=== PATIENT | female | born 1945 | race Caucasian/White ===

== ENCOUNTER 2023-07-20 04:27 | Day surgery (SDC) | payer MEDICARE, SELFPAY ==
[2023-07-04 14:01] VITALS: BMI 25.4
--- NOTE | 2023-07-18 09:35 | SUR.PREOP ---
Patient called regarding upcoming procedure. Reviewed preop instructions, appointment times, and procedure prep.
[2023-07-20 11:28] VITALS: BP 152/77; PULSE 66; RESP 18; TEMP 36.2; O2SAT 100
[2023-07-20] MEDS: LACTATED RINGERS 1,000 ML 150 ML IV CONT (11:36)
--- NOTE | 2023-07-20 11:57 | WPDANESEPPF ---
Anes - Initial Pre Proc Eval Procedure: Operation Date: 07/20/23 12:30 Proposed Procedures p Esophagogastroduodenoscopy - Santiago Ruano MD Date/Time: 07/20/23 11:57 Surgeon: Santiago Ruano MD Pre Op Diagnosis: dysphagia Patient Data Age: 78 Gender: F Height: 1.6 m Weight: 64.9 kg Last Vital Signs Temp 36.2 C L 07/20/23 11:28 Pulse 66 07/20/23 11:28 Resp 18 07/20/23 11:28 BP 152/77 H 07/20/23 11:28 Pulse Ox 100 07/20/23 11:28 O2 Del Method Room Air 07/20/23 11:28 Allergies Allergy/AdvReac Type Severity Reaction Status Date / Time Penicillins Allergy hives Verified 07/20/23 11:27 codeine AdvReac Severe Gastrointestinal Verified 07/20/23 11:27 Upset bee stings AdvReac Severe Swelling Uncoded 07/20/23 11:27 Home Medications Medication Instructions Recorded Confirmed Type cyanocobalamin (vitamin B-12) 1,000 mcg IM MONTHLY 04/21/22 07/04/23 History 1,000 mcg/mL injection solution aspirin 81 mg tablet,delayed 81 mg PO DAILY 04/26/22 07/04/23 History release (Adult Aspirin Regimen) pantoprazole 40 mg tablet,delayed 40 mg PO QAM #90 tabs 08/10/22 07/04/23 Rx release olmesartan 5 mg tablet See Rx Instructions PO DAILY #90 08/11/22 07/04/23 Rx tabs rosuvastatin 10 mg tablet 10 mg PO DAILY #90 tabs 02/09/23 07/04/23 Rx albuterol sulfate 90 mcg/actuation 2 inh inhalation Q4H PRN shortness 06/17/23 07/04/23 Rx aerosol inhaler of breath or wheezing #8.5 grams alprazolam 0.25 mg tablet 0.25 mg PO BID PRN anxiety #180 06/30/23 07/04/23 Rx tabs Patient hx anesthesia problems: none Family hx anesthesia problems: none Results Review: All pre-operative results and documents have been reviewed as part of the pre-operative evaluation. [facility] Past Medical History Medical History Bilateral otitis externa History of basal cell carcinoma (BCC) History of supraventricular tachycardia Intermittent palpitations Preoperative clearance Surgical History Surgical History History of back surgery History of carpal tunnel release History of hysterectomy Family History Family History Father Hypertension Heart disease Mother Hypertension Heart disease Social History Social History Smoking status: Never smoker Alcohol intake: current Drinks per week: 14 Alcohol use details: wine Substance use: never Substance use type: does not use Lack of Transportation: No Lack of Food: Never True Current Housing: I Have Housing Concerned About Future Housing: No Difficulty Paying Gas/Electric Bills: No Difficulty Paying for Meds: No Currently Unemployed: No Difficulty w/ Childcare or Family Care: No Living arrangements: with family Occupation/Education: retired Gender identity (if verbalized by the patient): Female Sexual Orientation (if Verbalized by the Patient): Straight or Heterosexual Spiritual care concerns: No Anes - Eval Final PreProcedure Day of Procedure 07/20/23 11:57 Patient weight: normal Heart: regular rate and rhythm Lungs: decreased breath sounds Airway: Mallampati scale class II Neurological: other (alert) Last oral intake: >/= 8 hours ASA classification: III Emergent: no Anesthetic plan: proceed Anesthesia type and monitoring: general GIVS and standard monitoring Results Review: All pre-operative results and documents have been reviewed as part of the pre-operative evaluation. Informed Consent: The patient's anesthetic plan and its attendant risks and benefits were discussed with the patient/family/POA. Questions were solicited and answers provided to the satisfaction of the patient/family/POA.
--- NOTE | 2023-07-20 12:33 | PM.HPGS ---
History of Present Illness History of Present Illness Consent: Risks, benefits, and alternatives have been discussed and questions answered. Patient agrees to proceed with procedure. Chief complaint: dysphagia Narrative: Bita Gatica is a 78 year old female with dysphagia, sensation that food will get stuck at left side of throat, had EGD with dilation earlier this year at [facility] , using pantoprazole Review of Systems Constitutional: Constitutional: Denies headache(s) and Denies weakness Eyes: Eyes: Denies blurry vision ENT: Reports Normal hearing present, Denies headache(s) and Denies neck pain Cardiovascular: Cardiovascular: Denies chest pain and Denies dyspnea Respiratory: Respiratory: Denies dyspnea Gastrointestinal: Gastrointestinal: Reports no additional gastrointestinal complaints Genitourinary: Genitourinary: Denies dysuria Musculoskeletal: Musculoskeletal: Denies neck pain Integumentary/Breasts: Skin/Breast: Denies dry skin Neurologic: Reports Normal hearing present, Denies headache(s) and Denies weakness Psychiatric: Psychiatric: Denies anxiety Endocrine: Endocrine: Denies change in body appearance Hematologic/Lymphatic: Hematologic/Lymphatic: Denies easy bleeding Allergic/Immunologic: Allergic/Immunologic: Denies urticaria PMFSH Past Medical History Medical History (Updated 07/20/23 @ 12:35 by Santiago Ruano MD) Bilateral otitis externa Dysphagia History of basal cell carcinoma (BCC) History of supraventricular tachycardia Intermittent palpitations Preoperative clearance Surgical History Surgical History History of back surgery History of carpal tunnel release History of hysterectomy Family History Family History Father Hypertension Heart disease Mother Hypertension Heart disease Social History Social History Smoking status: Never smoker Alcohol intake: current Drinks per week: 14 Alcohol use details: wine Substance use: never Substance use type: does not use Lack of Transportation: No Lack of Food: Never True Current Housing: I Have Housing Concerned About Future Housing: No Difficulty Paying Gas/Electric Bills: No Difficulty Paying for Meds: No Currently Unemployed: No Difficulty w/ Childcare or Family Care: No Living arrangements: with family Occupation/Education: retired Gender identity (if verbalized by the patient): Female Sexual Orientation (if Verbalized by the Patient): Straight or Heterosexual Spiritual care concerns: No Meds Home Medications and Allergies Home Medications Medication Instructions Recorded Confirmed Type cyanocobalamin (vitamin B-12) 1,000 mcg IM MONTHLY 04/21/22 07/04/23 History 1,000 mcg/mL injection solution aspirin 81 mg tablet,delayed 81 mg PO DAILY 04/26/22 07/04/23 History release (Adult Aspirin Regimen) pantoprazole 40 mg tablet,delayed 40 mg PO QAM #90 tabs 08/10/22 07/04/23 Rx release olmesartan 5 mg tablet See Rx Instructions PO DAILY #90 08/11/22 07/04/23 Rx tabs rosuvastatin 10 mg tablet 10 mg PO DAILY #90 tabs 02/09/23 07/04/23 Rx albuterol sulfate 90 mcg/actuation 2 inh inhalation Q4H PRN shortness 06/17/23 07/04/23 Rx aerosol inhaler of breath or wheezing #8.5 grams alprazolam 0.25 mg tablet 0.25 mg PO BID PRN anxiety #180 06/30/23 07/04/23 Rx tabs Allergies Allergy/AdvReac Type Severity Reaction Status Date / Time Penicillins Allergy hives Verified 07/20/23 11:27 codeine AdvReac Severe Gastrointestinal Verified 07/20/23 11:27 Upset bee stings AdvReac Severe Swelling Uncoded 07/20/23 11:27 Vital Signs Vital Signs - 24 hr 07/20/23 11:28 Temperature 97.1 F L Pulse Rate 66 Respiratory Rate 18 Blood Pressure 152/77 H Pulse Oximetry 100 Oxygen Delivery Room
[2023-07-20 12:51] VITALS: BP 141/73; PULSE 80; RESP 18; O2SAT 99
[2023-07-20 13:01] VITALS: BP 130/70; PULSE 68; RESP 18; O2SAT 99
[2023-07-20 13:11] VITALS: BP 136/74; PULSE 72; RESP 18; O2SAT 99
== END 2023-07-20 13:16 | disposition home or self-care (01) ==
PROVIDERS: PCP Family Medicine; Visit Provider Internal Medicine Gastroenterology
PROC: 0DJ08ZZ Inspection of Upper Intestinal Tract, Via Natural or Artificial Opening Endoscopic (ICD-10-PCS; CPT 43235; principal; 2023-07-20 12:30)
DX: K22.2 Esophageal obstruction (principal); K44.9 Diaphragmatic hernia without obstruction or gangrene; K21.00 Gastro-esophageal reflux disease with esophagitis, without bleeding; K29.50 Unspecified chronic gastritis without bleeding; Z79.82 Long term (current) use of aspirin; Z79.51 Long term (current) use of inhaled steroids
CPT/HCPCS: 43249; 88305; C1726; J2704; J7120

== ENCOUNTER 2023-11-24 08:08 | Outpatient (CLI) | payer MEDICARE, SELFPAY ==
--- NOTE | ~2023-11-24 | XR_ITS ---
EXAMINATION: XR barium swallow DATE: 11/24/2023 08:56 INDICATION: Dysphagia with weight loss. Food getting caught at the left side of the throat. TECHNIQUE: The patient drank thick barium, gas-producing crystals, and thin barium. Fluoroscopic spot radiographs of the hypopharynx and esophagus were obtained. Fluoroscopy exposure time was 2.0 minut es. A total of 1560 fluoroscopic images were recorded. Total DAP was 5.52 Gycm^2. COMPARISON: None. FINDINGS: The pharynx is symmetric and without evidence of mass lesion or mucosal irregularity. The e sophagus is normal without mass or stricture. Esophageal motility is normal. There is a small sliding -type hiatal hernia. A single episode of gastroesophageal reflux a very large amount of contrast whic h extended into the mid to upper thoracic esophagus was observed the patient's transition from prone to supine position. No further reflux was able to be elicited with additional provocative maneuvers. IMPRESSION: 1. Small sliding-type hiatal hernia with gastroesophageal reflux. Reviewed, dictated and finalized at location A.
== END 2023-11-24 08:09 | disposition home or self-care (01) ==
PROVIDERS: PCP Family Medicine; Visit Provider Otolaryngology
DX: K22.2 Esophageal obstruction (principal); R13.10 Dysphagia, unspecified; K22.4 Dyskinesia of esophagus; K44.9 Diaphragmatic hernia without obstruction or gangrene
CPT/HCPCS: 74220

== ENCOUNTER 2024-01-19 08:51 | Outpatient (CLI) | payer MEDICARE, SELFPAY ==
--- NOTE | ~2024-01-19 | NM_ITS ---
EXAMINATION: NM monique stress w perfusion DATE: 01/19/2024 10:39 INDICATION: Other forms of dyspnea. TECHNIQUE: Rest images were obtained following intravenous administration of 9.6 mCi Tc99m tetrofosmi n (Myoview). The patient was infused intravenously with Lexiscan (regadenoson). Then, 31.4 mCi Tc99m tetrofosmin (Myoview) was administered intravenously, and stress images were obtained. Data was recon structed into short axis and horizontal and vertical long axis SPECT images. Gated SPECT images were also obtained. COMPARISON: None. FINDINGS: There is no definite reversible or fixed perfusion abnormality to suggest ischemia or infar ction. There is no segmental wall motion abnormality. Left ventricular ejection fraction measures > 70%. IMPRESSION: 1. No definite ischemia or infarct. 2. Normal left ventricular ejection fraction measuring >70%. Reviewed, dictated and finalized at location A.
--- NOTE | 2024-01-19 09:08 | EST_ITS ---
Patient Info Name: Bita Gatica Age: 78 years : 1945 Gender: Female Ht: 63 in Wt: 140 lbs BSA: 1.69 m2 HR: 64 bpm BP: 146 / 79 mmHg Heart Rhythm: Sinus Rhythm Exam Date: 01/19/2024 9:47 AM Exam Location: Echo Lab Patient Status: Outpatient Admit Date: 01/19/2024 Staff Ordering Physician: Oc Lubin DO Attending Provider: Oc Lubin DO Exercise Technologist: Paradise Vasquez CT Exercise Physician: Oc Lubin DO Exam Type: CA stress monique w NM Study Info Indications R06.09 - Other forms of dyspnea A regadenoson stress test was performed. Summary 1. 1. Negative lexiscan stress test for ischemic ST changes by ECG criteria. 2. 2. Baseline hypertension. 3. 3. Nuclear scan to follow and will be reported separately. Please correlate with it. 4. 4. Patient informed of the above results. Protocol: Lexiscan Stress ECG Details Stage: REST Duration (min): 1 min : 3 sec HR (bpm): 65 SBP (mmHg): 146 DBP (mmHg): 79 Stage: REST Duration (min): 11 min : 40 sec HR (bpm): 64 SBP (mmHg): 146 DBP (mmHg): 79 Stage: STAGE 1 Duration (min): 0 min : 59 sec HR (bpm): 114 SBP (mmHg): 156 DBP (mmHg): 88 Stage: RECOVERY Duration (min): 1 min : 0 sec HR (bpm): 109 SBP (mmHg): 156 DBP (mmHg): 88 Stage: RECOVERY Duration (min): 2 min : 0 sec HR (bpm): 86 SBP (mmHg): 156 DBP (mmHg): 88 Stage: RECOVERY Duration (min): 3 min : 0 sec HR (bpm): 78 SBP (mmHg): 148 DBP (mmHg): 73 Stage: RECOVERY Duration (min): 3 min : 7 sec HR (bpm): 81 SBP (mmHg): 148 DBP (mmHg): 73 Rest HR: 64 bpm Peak HR: 116 bpm Rest Sys BP: 146 mmHg Peak Sys BP: 156 mmHg Max Pred HR: 144 bpm % Max Pred HR: 81 % Target HR: 122 bpm Max RPP: 18,096 bpm*mmHg Termination Reason: Completed protocol Cardiac Symptoms: Shortness of breath Total Time: 1 min : 0 sec Rest Butterfield BP: 79 mmHg Peak Butterfield BP: 88 mmHg Total Dose: 0.4 mg Resting ECG Sinus rhythm. Stress ECG No ST changes. Arrhythmias None. Report Signatures
== END 2024-01-19 08:52 | disposition home or self-care (01) ==
PROVIDERS: PCP Nurse Practitioner Family; Visit Provider Internal Medicine Cardiovascular Disease
DX: R06.09 Other forms of dyspnea (principal)
CPT/HCPCS: 78452; 93017; A9502; J2785

== ENCOUNTER 2024-10-18 10:41 | Outpatient (CLI) | payer MEDICARE, SELFPAY ==
--- OUTSIDE RECORDS SUMMARY | 2024-10-18 11:29 | XMS_ITS | Encounter Summary ---
Author Organization [facility] Address 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
--- OUTSIDE RECORDS SUMMARY | 2024-10-18 11:29 | XMS_ITS | Encounter Summary ---
Author Organization [email or web address] Address [address] [place] [address] Care Team Providers Care Mechanical Designer Name Role Phone Eduardo Linton MD Primary Care Provider [phone] Encounter Details Date Type Department Care Team (Late st Contact Info) Description 10/06/2000 Outpatient Historical [facility] Ganesh Brower MD Social History Tobacco Use Types Packs/Day Years Used Date Smoking Tobacco: Never Assessed Comments Unknown Sex and Gender Information Value Date Recorded Sex Assigned at Not on file Legal Sex Female 4:23 AM WEIGHT RECORDER Gender Identity Not on file Sexual Orientation Not on file documented as of this encounter Plan of Treatment Not on file documented as of this encounter Visit Diagnoses Not on filedocumented in this encounter Care Teams Mechanical Designer Relationship Specialty Start Date End Date Eduardo Linton MD PCP - General Internal Medicine 04/12/11 12/17/18 documented as of this encounter
--- OUTSIDE RECORDS SUMMARY | 2024-10-18 11:29 | XMS_ITS | Encounter Summary ---
Author Organization [facility] Address [address] [place] [address] Care Team Providers Care Panel Raiser Operator Name Role Phone Eduardo Linton MD Primary Care Provider [phone] Encounter Details Date Type Department Care Team (Late st Contact Info) Description 02/04/1999 Outpatient Historical [facility] Ganesh Brower MD Social History Tobacco Use Types Packs/Day Years Used Date Smoking Tobacco: Never Assessed Comments Unknown Sex and Gender Information Value Date Recorded Sex Assigned at Not on file Legal Sex Female 4:23 AM COOKER CASING Gender Identity Not on file Sexual Orientation Not on file documented as of this encounter Plan of Treatment Not on file documented as of this encounter Visit Diagnoses Not on filedocumented in this encounter Care Teams Panel Raiser Operator Relationship Specialty Start Date End Date Eduardo Linton MD PCP - General Internal Medicine 04/12/11 12/17/18 documented as of this encounter
--- OUTSIDE RECORDS SUMMARY | 2024-10-18 11:29 | XMS_ITS | Encounter Summary ---
Author Organization [facility] Address 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
--- OUTSIDE RECORDS SUMMARY | 2024-10-18 11:29 | XMS_ITS | Encounter Summary ---
Author Organization [facility] Address 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
--- OUTSIDE RECORDS SUMMARY | 2024-10-18 11:29 | XMS_ITS | Encounter Summary ---
Author Organization [facility] Address 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
--- OUTSIDE RECORDS SUMMARY | 2024-10-18 11:29 | XMS_ITS | Encounter Summary ---
Author Organization [facility] Address [address] [place] [address] Care Team Providers Care News Writer Name Role Phone Eduardo Linton MD Primary Care Provider [phone] Encounter Details Date Type Department Care Team (Late st Contact Info) Description 02/04/1999 Outpatient Historical [facility] Ganesh Brower MD Social History Tobacco Use Types Packs/Day Years Used Date Smoking Tobacco: Never Assessed Comments Unknown Sex and Gender Information Value Date Recorded Sex Assigned at Not on file Legal Sex Female 4:23 AM PYTHON ARCHITECT Gender Identity Not on file Sexual Orientation Not on file documented as of this encounter Plan of Treatment Not on file documented as of this encounter Visit Diagnoses Not on filedocumented in this encounter Care Teams News Writer Relationship Specialty Start Date End Date Eduardo Linton MD PCP - General Internal Medicine 04/12/11 12/17/18 documented as of this encounter
--- OUTSIDE RECORDS SUMMARY | 2024-10-18 11:29 | XMS_ITS | Encounter Summary ---
Author Organization [facility] Address [address] [place] [address] Care Team Providers Care Graphite Disk Assembler Name Role Phone Eduardo Linton MD Primary Care Provider [phone] Encounter Details Date Type Department Care Team (Late st Contact Info) Description 02/04/1999 Outpatient Historical [facility] Ganesh Brower MD Social History Tobacco Use Types Packs/Day Years Used Date Smoking Tobacco: Never Assessed Comments Unknown Sex and Gender Information Value Date Recorded Sex Assigned at Not on file Legal Sex Female 4:23 AM MATERNAL CHILD NURSE Gender Identity Not on file Sexual Orientation Not on file documented as of this encounter Plan of Treatment Not on file documented as of this encounter Visit Diagnoses Not on filedocumented in this encounter Care Teams Graphite Disk Assembler Relationship Specialty Start Date End Date Eduardo Linton MD PCP - General Internal Medicine 04/12/11 12/17/18 documented as of this encounter
--- OUTSIDE RECORDS SUMMARY | 2024-10-18 11:29 | XMS_ITS | Encounter Summary ---
Author Organization [facility] Address [address] [place] [address] Care Team Providers Care Network Management Specialist Name Role Phone Eduardo Linton MD Primary Care Provider Encounter Details Date Type Department Care Team (Late st Contact Info) Description 10/04/2000 Outpatient Historical [facility] MD Nakia HUYNH Maged, MD Social History Tobacco Use Types Packs/Day Years Used Date Smoking Tobacco: Never Assessed Comments Unknown Sex and Gender Information Value Date Recorded Sex Assigned at Not on file Legal Sex Female 4:23 AM DESK INTERVIEWER Gender Identity Not on file Sexual Orientation Not on file documented as of this encounter Plan of Treatment Not on file documented as of this encounter Visit Diagnoses Not on filedocumented in this encounter Care Teams Network Management Specialist Relationship Specialty Start Date End Date Eduardo Linton MD PCP - General Internal Medicine 04/12/11 12/17/18 documented as of this encounter
--- OUTSIDE RECORDS SUMMARY | 2024-10-18 11:29 | XMS_ITS | Encounter Summary ---
Author Organization [facility] Address [address] [place] [address] Care Team Providers Care Plastic And Reconstructive Surgeon Name Role Phone Eduardo Linton MD Primary Care Provider Encounter Details Date Type Department Care Team (Late st Contact Info) Description 09/26/2000 Outpatient Historical [facility] MD Nakia HUYNH Maged, MD Social History Tobacco Use Types Packs/Day Years Used Date Smoking Tobacco: Never Assessed Comments Unknown Sex and Gender Information Value Date Recorded Sex Assigned at Not on file Legal Sex Female 4:23 AM TRANSITION TEACHER Gender Identity Not on file Sexual Orientation Not on file documented as of this encounter Plan of Treatment Not on file documented as of this encounter Visit Diagnoses Not on filedocumented in this encounter Care Teams Plastic And Reconstructive Surgeon Relationship Specialty Start Date End Date Eduardo Linton MD PCP - General Internal Medicine 04/12/11 12/17/18 documented as of this encounter
--- OUTSIDE RECORDS SUMMARY | 2024-10-18 11:29 | XMS_ITS | Clinical Summary ---
Author Organization [facility] Address [address] [place] [address] Phone Care Team Providers Care Doctor Of Podiatric Medicine Name Role Phone Unavailable Primary Care Provider Unavailabl e Allergies Active Allergy Reactions Criticality Noted Date Comments Codeine Unknown Penicillins Hives High Quinapril Itching Low 11/25/2016 Simvastatin Other (See Comments) 11/25/2016 Hair loss, head tingling Medications cholecalciferol , Vitamin D3, (VITAMIN D3) 1,000 unit Capsule Take by mouth daily. Active CALCIUM ORAL Take by mouth. Active aspirin (ECOTRIN EC) 81 mg Tablet, Delayed Release (E.C.) Take 81 mg by mouth daily. Active DOCUSATE CALCIUM (STOOL SOFTENER ORAL) Take by mouth daily . Active rosuvastatin (CRESTOR) 10 mg tablet Take 1 Tablet (10 mg) by mouth daily at bedtime. 90 Tablet 3 05/27/2017 Active ALPRAZolam (XANAX) 0.25 mg tablet Take 1 Tablet (0.25 mg) by mouth 2 times daily as needed for Anxiety. 60 Tablet 4 05/27/2017 Active pantoprazole (PROTONIX) 40 mg Tablet, Delayed Release (E.C.) Take 1 Tablet (40 mg) by mouth daily. 90 Tablet 3 05/27/2017 Active olmesartan (BENICAR) 20 mg tablet Take 0.5 Tablets (10 mg) by mouth daily. 45 Tablet 3 05/27/2017 Active Active Problems Problem Noted Date Diagnosed Date HTN (hypertension), benign 11/25/2016 Gastroesophageal reflux disease without esophagi tis 11/25/2016 Hyperlipidemia 11/25/2016 Hx of supraventricular tachycardia History of sick sinus syndrome Resolved Problems Problem Noted Date Diagnosed Date Resolved Date First degree AV block 2016 Immunizations Immunization Administration Dates Next Due (PREVNAR 13)(6 WKS UP) PNEUM OCOCCAL CONJUGATE (PCV13) 0.5 ML, IM 05/07/2015 Influenza Seasonal Unspecified Formulation IM ,04/01/2016 Pneumococcal Polysaccharide Vacc 23-edward IM SCHIP 04/19/2012 Zoster Vaccine Live SQ 04/19/2010 Social History Tobacco Use Types Packs/Day Years Used Date Smoking Tobacco: Never Alcohol Use Standard Drinks/Week Comments Yes 0 (1 standard drink = 0.6 oz pur e alcohol) daily Comments No Sex and Gender Information Value Date Recorded Sex Assigned at Not on file Legal Sex Female 4:23 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 Gender Identity Not on file Sexual Orientation Not on file Last Filed Vital Signs Vital Sign Reading Time Taken Comments Blood Pressure 138/82 05/27/2017 10:12 AM CDT Pulse 68 05/27/2017 10:12 AM CDT Temperature 36.5 C (97.7 F) 05/27/2017 10:12 AM CDT Respiratory Rate 16 05/27/2017 10:12 AM CDT Oxygen Saturation 98% 05/27/2017 10:12 AM CDT Inhaled Oxygen Concentration - - Weight 60.3 kg (133 lb) 05/27/2017 10:12 AM CDT Height 160 cm (5' 3 ) 05/27/2017 10:12 AM CDT Body Mass Index 23.56 05/27/2017 10:12 AM CDT Plan of Treatment Health Maintenance Due Date Last Done Comments DTAP/TDAP/TD VACCINES (1 - Tdap) 1966 ZOSTER VACCINE (2 of 3) 06/14/2010 04/19/2010 RSV VACCINE (60+ or ) (1 - 1-dose 75+ series) 2022 INFLUENZA VACCINE (#1) 2024 03/31/2017, 2015 COLORECTAL SCREENING Discontinued 11/21/2014 Colorectal Cancer Screening Discontinued PNEUMOCOCCAL VACCINE 50+ YEARS Completed 05/07/2015 , 04/19/2012 OSTEOPOROSIS SCREENING Completed 05/24/2018, 2014 FIT-DNA Q 3 years Discontinued FIT/FOBT Q 1 year Discontinued Flex Sig/CT Colonography Q 5 years Discontinued Insurance MEDICARE PART A AND B AETNA MEDICARE SUPP AESSI Advance Directives For more information, please contact: [phone] Documents on File Type Date Recorded Patient Refiner Operator Expl anation Advance Directive Living Will 05/27/2017 9:32 AM Advance Directive Living Will Advance Directive POA 05/27/2017 9:31 AM Advance Directive POA
--- OUTSIDE RECORDS SUMMARY | 2024-10-18 11:29 | XMS_ITS | Encounter Summary ---
Author Organization [facility] Address 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
--- OUTSIDE RECORDS SUMMARY | 2024-10-18 11:29 | XMS_ITS | Encounter Summary ---
Author Organization [facility] Address 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
--- OUTSIDE RECORDS SUMMARY | 2024-10-18 11:30 | XMS_ITS | Referral Summary ---
Author Organization [facility] Address [address] [place] [address] Care Team Providers Care Welder Fitter Arc Name Role Phone Wally Means MD Unavailable [phone] Isela Rubio OD Unavailable [phone] Andrés Smith MD Unavailable Sidra Beltran Unavailable Koffi Connell MD Primary Care Provider [phone] Allergies Active Allergy Reactions Criticality Noted Date Comments Codeine Nausea & Vomiting Low Reaction: NAUSEA Penicillins Hives High Reaction: HIVES Quinapril Itching Low 11/25/2016 Simvastatin Other (See comments) Low Reaction: Hair loss, Venom-Honey Bee Swelling Medium 10/02/2020 Medications docusate sodium (STOOL SOFTENER) 100 mg capsule Take according to [id number] package directions 0 0 9 Active ALPRAZolam (XANAX) 0.25 mg tablet Take one by mouth three times per day as needed 30 0 9 Active Additional Information Patient not taking.Reported on 07/06/2023 cyanocobalamin (Vitamin B-12) 1,000 mcg tablet Take 1 tablet (1,000 mcg total) by mouth daily Active EPINEPHrine 0.3 mg/0.3 mL auto-injection syringe Inject 0.3 mL (0.3 mg total) into the muscle as instructed as needed [address] (PROTONIX) 40 mg EC tablet Take 1 tablet (40 mg total) by mouth daily 7 Active rosuvastatin (CRESTOR) 10 mg tablet Take 1 tablet (10 mg total) by mouth daily 7 Active olmesartan (BENICAR) 5 mg tablet TAKE 1/2 TO 1 TABLET BY MOUTH DAILY 2 Active escitalopram (LEXAPRO) 10 mg tablet Take 1 tablet (10 mg total) by mouth nightly 90 tablet 3 3 Active albuterol HFA (PROVENTIL HFA,VENTOLIN HFA,PROAIR HFA) 90 mcg/actuation inhaler INHALE 2 PUFFS BY MOUTH EVERY 4 HOURS NEEDED FOR SHORTNESS OF BREATH OR WHEEZING 4 Active Active Problems Problem Noted Date Diagnosed Date Pseudophakia of left eye 10/12/2023 Assessment & Plan (10/12/2023 4:47 PM CDT): Posterior chamber intraocular lens (PCIOL) in good position, clear. Monitor Hx of LASIK 10/12/2023 Assessment & Plan (10/12/2023 4:48 PM CDT): Stable, no complications. Monitor Aphasia 07/05/2022 Mild cognitive impairment 03/22/2022 Ataxia 03/22/2022 Anxiety 03/22/2022 Cerebrovascular disease 03/22/2022 Epiretinal membrane (ERM) of left eye 02/25/2022 Assessment & Plan (01/17/2024 9:37 PM CDT): Not yet visually significant. Discussed pars plana vitrectomy (PPV)/membrane peel (MP) PRN progression. 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 No diplopia with new Bangerter in clinic. Educated to call/RTC should be unable to place if filter falls off. Educated on how to place back on if needed. 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 Subjective improvement with Bangerter filter over left eye in clinic, no specs to place on lens today. Will update specs and return for Bangerter filter placement over left eye. Referred to retina for eval, for now pt would prefer to hold off and monitor Nuclear sclerosis of right eye 02/25/2022 Assessment & Plan (10/12/2023 4:47 PM CDT): Mild changes noted and discussed, not visually significant. Monitor SVT (supraventricular tachycardia) 12/26/2020 Overview (12/26/2020): Added automatically from request for surgery [id number] Hyperlipidemia 12/15/2013 Overview (11/04/2016): HYPERLIPIDEMIA NEC/NOS Hypertension 12/15/2013 Overview (11/05/2016): HYPERTENSION NOS Immunizations Immunization Administration Dates Next Due Td, adsorbed 08/02/2007 Social History Tobacco Use Types Packs/Day Years Used Date Smoking Tobacco: Never Tobacco Cessation:Counseling Given: Not Answered Alcohol Use Standard Drinks/Week Comments Yes 0 (1 standard drink = 0.6 oz pur e alcohol) AUDIT-C Answer Date Recorded Q1: How often do you have a drink containing alcohol? 4 or more times a week 06/10/2022 Q2: How many drinks containi ng alcohol do you have on a typical day when you are drinking? 1 or 2 Q3: How often do you have si x or more drinks on one occasion? Never 06/10/2022 Comments Unknown Sex and Gender Information Value Date Recorded Sex Assigned at Not on file Legal Sex Female 5:47 PM BRANCH MANAGER Gender Identity Not on file Sexual Orientation Not on file Last Filed Vital Signs Vital Sign Reading Time Taken Comments Blood Pressure 150/80 07/06/2023 11:43 AM BRANCH MANAGER Pulse 58 06/10/2022 11:39 AM BRANCH MANAGER Temperature 36.1 C (97 F) 06/10/2022 11:22 AM BRANCH MANAGER Respiratory Rate 15 06/10/2022 11:39 AM BRANCH MANAGER Oxygen Saturation 100% 06/10/2022 11:39 AM BRANCH MANAGER Inhaled Oxygen Concentration - - Weight 64.9 kg (143 lb) 07/06/2023 11:43 AM BRANCH MANAGER Height 157.5 cm (5' 2 ) 07/06/2023 11:43 AM BRANCH MANAGER Body Mass Index 26.16 07/06/2023 11:43 AM BRANCH MANAGER Plan of Treatment Not on file Medical Devices Implanted Type Area Chipper Feeder Device Identifier Shelf Expiration Date Model / Serial / Lot [employer] [id number] Device Closure Vascade Od5 Fr Femoral Artery - [id number] - [id number] Implanted:Qty : 1 on 01/05/2021 by Wally Means MD at [facility] Collagen Right: Femoral [employer] 11/03/2022 700-500DX -05U / [id number] / [id number] [employer] [id number] System 6-12fr Mvp Venous Closure Vascade - [id number] - [id number] Implanted:Qty : 1 on 01/05/2021 by Wally Means MD at [facility] Collagen Right: Femoral [employer] 11/03/2022 800-612C- 10U / [id number] / [id number] [employer] [id number] System 6-12fr Mvp Venous Closure Vascade - [id number] - [id number] Implanted:Qty : 1 on 01/05/2021 by Wally Means MD at [facility] Collagen Right: Femoral [employer] 11/03/2022 800-612C- 10U / [id number] / [id number] [employer] [id number] Device Closure Vascade Od5 Fr Femoral Artery - [id number] - [id number] Implanted:Qty : 1 on 01/05/2021 by Wally Means MD at [facility] Collagen Left: Femoral [employer] 11/03/2022 700-500DX -05U / [id number] / [id number] [employer] [id number] Device Closure Vascade Od5 Fr Femoral Artery - [id number] - [id number] Implanted:Qty : 1 on 01/05/2021 by Wally Means MD at [facility] Collagen Left: Femoral [employer] 11/03/2022 700-500DX -05U / [id number] / [id number] Procedures Procedure Name Priority Date/Time Associated Diagnosis Comments COLONOSCOPY 06/10/2022 10:05 AM BRANCH MANAGER from Last 3 Months or Most Recently Relevant to Health Maintenance Results * COLONOSCOPY (06/10/2022 10:05 AM BRANCH MANAGER) Anatomical Region Laterality Modality Other Narrative Procedure Note Harshad Moe MD - 06/10/2022 10:05 AM CST [facility] Endoscopy Lab Patient Name: Bita Gatica Procedure Date: 06/10/2022 10:05AM Date of : 1945 Admit Type: Outpatient Age: 77 Gender: Female Attending MD: Harshad Moe M.D. Procedure: Colonoscopy Indications: Screening for colorectal malignant neoplasm, Surveillance: Personal history of adenomatouspolyps on last colonoscopy > 5 years ago Providers: Harshad Moe M.D. Referring MD: Tsering Dumont M.D., Bartloo Ramirez MD Medicines: Monitored Anesthesia Care Complications: No immediate complications. Procedure: Pre-Anesthesia Assessment: - Mental Status Examination: alert and oriented. Airway Examination: normal oropharyngeal airway and neck mobility. Respiratory Examination: clear to auscultation. CV Examination: normal. Abdominal Examination: bowel sounds present, abdomen soft and non-tender, no masses or organomegaly noted. - ASA Grade Assessment: II - A patient with mild systemic disease. - The risks and benefits of the procedure and the sedation options and risks were discussed with the patient. All questions were answered and informed consent was obtained. The benefits, risks and alternatives of theprocedure and sedation were discussed and informed consentwas obtained. All questions were answered. Please referto the signed informed consent document in the medical record. The scope was passed under direct vision.The Colonoscope was introduced through the anus and advanced to the the terminal ileum. The colonoscopy was performed with moderate difficulty due to a tortuous colon. Successful completion of theprocedure was aided by changing the patient to a supine position, using manual pressure and withdrawing the scope and replacing with the adult endoscope. The terminal ileum, ileocecal valve, appendicealorifice, and rectum were photographed. The quality of thebowel preparation was evaluated using the BBPS (BostonBowel Preparation Scale) with scores of: Right Colon = 3, Transverse Colon = 3 and Left Colon = 3 (entiremucosa seen well with no residual staining, smallfragments of stool or opaque liquid). The total BBPS score equals 9. Findings: The digital rectal exam findings include non-thrombosed external hemorrhoids. Pertinent negatives include normal sphincter tone and no palpable rectal lesions. The terminal ileum appeared normal. A 2 mm polyp was found in the sigmoid colon. The polyp was sessile.The polyp was removed with a cold biopsy forceps. Resection and retrieval were complete. To prevent bleeding after the polypectomy, onehemostatic clip was successfully placed (MR conditional). Clip certified medical coder:[employer]. There was no bleeding at the end of the procedure. Multiple small-mouthed diverticula were found in the sigmoid colon. The retroflexed view of the distal rectum and anal verge was normaland showed no anal or rectal abnormalities. Impression: - Non-thrombosed external hemorrhoids found ondigital rectal exam. - The examined portion of the ileum was normal. - One 2 mm polyp in the sigmoid colon, removed witha cold biopsy forceps. Resected and retrieved. Clip(MR conditional) was placed. Clip certified medical coder: [employer]. - Diverticulosis in the sigmoid colon. Recommendation: - Await pathology results. - Resume previous diet. - Continue present medications. - Repeat colonoscopy in 5 years for surveillancebased on pathology results and overall health. Harshad Moe MD Harshad Moe M.D. 06/10/2022 11:14:41 AM This report has been signed electronically. Number of Addenda: 0 Note Initiated On: 06/10/2022 10:05 AM Scope Withdrawal Time: 0 hours 9 minutes 7 seconds Estimated Blood Loss: Estimated blood loss was minimal. us Harshad Moe MD ENDOSCOPY PROCEDURES Fi nal Result from Last 3 Months or Most Recently Relevant to Health Maintenance Insurance MEDICARE AET SENIOR SUPPLEMENT MEDICARE T SENIOR SUPPLEMENT MEDICARE AETNA SENIOR SUPPLEMENT [place] [id number] Care Teams Welder Fitter Arc Relationship Specialty Start Date End Date Koffi Connell MD [address] [place] [id number] PCP - General Family Medicine 07/06/23 Wally Means MD Consulting Physician Cardiology 01/05/21 Isela Rubio OD Referring Physician Optometry 08/11/21 Andrés Smith MD Consulting Physician Retina Ophthalmology 02/25/22 Sidra Beltran PA Physician Escort Car Driver Neurology 02/25/22
--- OUTSIDE RECORDS SUMMARY | 2024-10-18 11:30 | XMS_ITS | Clinical Summary ---
Author Organization [facility] Address [facility] [place] [address] Care Team Providers Care Php Web Developer Name Role Phone Jessica Hester Primary Care Provider Allergies Active Allergy Reactions Criticality Noted Date Comments Bee Venom Swelling 10/02/2020 Codeine Nausea and Vomiting 10/02/2020 Penicillins Hives 10/02/2020 Quinapril Itching 11/25/2016 Simvastatin Other (see comment) 11/25/2016 Hair loss, head tingling Medications ALPRAZolam 0.25 MG tablet Take 1 tablet (0.25 mg total) by mouth nightly. 1 Active aspirin EC 81 MG tablet Take 1 tablet (81 mg total) by mouth daily. Active vitamin D3, cholecalciferol , 25 MCG (1000 UT) capsule Take 40,000 capsules (40,000,000 Units total) by mouth daily. Active EPINEPHrine 0.3 MG/0.3ML injection Inject 0.3 mg into the muscle as needed for Anaphylaxis. Allergic to bees/wasps 0 Active metoprolol tartrate 25 MG tablet Take 12.5 mg by mouth 2 (two) times daily. 0 Active olmesartan 20 MG tablet Take 0.5 tablets (10 mg total) by mouth every morning. 0 Active pantoprazole EC 40 MG tablet Take 1 tablet (40 mg total) by mouth daily. 0 Active rosuvastatin 10 MG tablet Take 1 tablet (10 mg total) by mouth nightly at bedtime. 0 Active docusate sodium 250 MG capsule Take 250 mg by mouth daily. Active vitamin B-12 1000 MCG tablet Take 1 tablet (1,000 mcg total) by mouth daily. Active ondansetron 4 MG tablet Take 1 tablet (4 mg total) by mouth every 8 (eight) hours as needed for Nausea. 20 tablet Active Additional Information Patient not taking.Reported on 10/07/2022 cyanocobalamin (B-12) 1000 MCG/ML injection Inject into the muscle every 30 (thirty) days. Active Active Problems Problem Noted Date Diagnosed Date Syncope 10/02/2020 Hx of supraventricular tachycardia 10/02/2020 Hyperlipidemia 11/25/2016 Encounters Date Type Department Care Team Description 09/28/2024 10:40 AM PILL MAKER - 09/28/2024 11:59 PM [facility] Hospital Encounter [facility] [address] [place] [address] Jessica Hester FNP Discharge Disposition: Home or Self Care (Routine Discharge) 09/28/2024 Travel from Last 3 Months Family History Medical History Relation Comments [place] Father Hypertension Mother Breast Cancer Paternal Aunt Relation Status Comments Father Mother Paternal Aunt Social History Tobacco Use Types Packs/Day Years Used Date Smoking Tobacco: Never Smokeless Tobacco: Never Tobacco Cessation:Counseling Given: Not Answered Alcohol Use Standard Drinks/Week Comments Yes 3.3 (1 standard drink = 0.6 oz p ure alcohol) 2 glasses wine each day AUDIT-C Answer Date Recorded Q1: How often do you have a drink containing alc ohol? Never 10/02/2020 Average Number of Drinks Not on file 021 Frequency of Binge Drinking Not on file 10/2020 PHQ-2 Answer Date Recorded Patient Health Questionnaire-2 Score 0 10/07/2022 Comments No Sex and Gender Information Value Date Recorded Sex Assigned at Not on file Legal Sex Female 8:29 PM CDT Gender Identity Not on file Sexual Orientation Not on file Last Filed Vital Signs Vital Sign Reading Time Taken Comments Blood Pressure 168/70 03/11/2024 3:48 PM CDT Pulse 87 03/11/2024 3:48 PM CDT Temperature 37.1 C (98.7 F) 03/11/2024 3:48 PM CDT Respiratory Rate 20 03/11/2024 3:48 PM CDT Oxygen Saturation 99% 03/11/2024 3:48 PM CDT Inhaled Oxygen Concentration - - Weight 64 kg (141 lb) 03/11/2024 3:48 PM CDT Height 160 cm (5' 3 ) 03/11/2024 3:48 PM CDT Body Mass Index 24.98 03/11/2024 3:48 PM CDT Plan of Treatment Health Maintenance Due Date Last Done Comments Hepatitis C 1963 DTaP, Tdap and Td Vaccines (1 - Tdap) 08/03/2007 08/02/2007 Zoster Vaccines (2 of 3) 06/14/2010 04/19/2010 Annual Medicare Wellness Visit 2012 Dexa Scan (General) 2012 RSV Immunization or 60+ Years (1 - 1-dose 75+ series) 2022 COVID-19 Vaccine (3 - season) 2024 10/01/2020, 09/03/2020 Influenza Adult (#1) 2024 03/28/2020, 04/10/2019, 03/31/2017, Additional history exists Pneumococcal Vaccine: 65+ Years Completed 05/07/2015, 04/19/2012 Meningococcal B Vaccine Aged Out No l onger eligible based on patient's age to complete this topic Meningococcal Vaccine Aged Out No keny luca eligible based on patient's age to complete this topic RSV Immunizations Under 20 Months Aged Out No longer eligible based on patient's age to complete this topic Goals Goal Patient Goal Type Associated Problems Recent Progress Patient-Stated? Author Safety - demonstrates understanding of home safety measures General No Terrie Vasquez manager of internal audit Procedure Name Priority Date/Time Associated Diagnosis Comments MG SCREENING W DAGO AR DIGI Routine 09/28/2024 12:14 PM PILL MAKER Encounter for screening mammogram for breast cancer from Last 3 Months Results * MG SCREENING W DAGO AR DIGI (09/28/2024 12:14 PM PILL MAKER) Anatomical Region Laterality Modality Breast Bilateral Mammography 09/28/2024 12:0 2 PM PILL MAKER Impressions 09/28/2024 12:03 PM PILL MAKER =====IMPRESSION:===== No mammographic findings suggestive of malignancy ASSESSMENT: ACR BI-RADS 2 - BENIGN FINDING(S) Recommendation: 1: Routine Screening Bilateral COMMENTS: A negative or benign mammogram should not delay further workup and/or biopsy of a clinically suspicious finding or palpable abnormality. Regions of dense breast tissue may obscure an underlying mass. Ordered By: JESSICA HESTER Interpreted By: Hawk Qiu MD, 09/28/2024 12:02 PM Narrative 09/28/2024 12:03 PM PILL MAKER [facility] [address] [place] [address] EXAMINATION: Digital bilateral screening mammogram with 3-D tomosynthesis EXAM DATE/TIME: 09/28/2024 10:49 AM REASON FOR EXAM: Routine screening. History of prior benign left breast/axilla biopsy in 1999. COMPARISON: Screening mammograms 08/09/2023, 05/14/2022, 04/30/2021, 06/13/2019. TECHNIQUE: Digital screening mammography of both breasts was performed in addition to 3-D Tomosynthesis technique. This study was read with the assistance of a computer-aided detection system. TISSUE DENSITY: The breasts are heterogeneously dense, which may obscure small masses. FINDINGS: Scattered benign-appearing calcifications noted. No suspicious masses, malignant appearing calcifications, skin thickening or other abnormalities are present. No significant change from the prior exam. Jessica Hester RAC SPECIALIST MAMMO Final Resul t from Last 3 Months Insurance MEDICARE AETNA Advance Directives * Full Code (Latest Code Status on File) Date Activated Date Inactivated Comments 10/02/2020 6:09 PM 10/03/2020 5:08 PM Care Teams Php Web Developer Relationship Specialty Start Date End Date Jessica Hester FNP [address] [place] [id number] PCP - General Nurse Practitioner Family 03/11/24
--- OUTSIDE RECORDS SUMMARY | 2024-10-18 11:30 | XMS_ITS | Clinical Summary ---
Author Organization [facility] Address [address] [place] [address] Care Team Providers Care Regeneration Operator Name Role Phone Wally Means MD Unavailable Isela Rubio OD Unavailable [phone] Andrés Smith MD Unavailable Sidra Beltran Unavailable Koffi Connell MD Primary Care Provider [phone] Allergies Active Allergy Reactions Criticality Noted Date Comments Codeine Nausea & Vomiting Low Reaction: NAUSEA Penicillins Hives High Reaction: HIVES Quinapril Itching Low 11/25/2016 Simvastatin Other (See comments) Low Reaction: Hair loss, Venom-Honey Bee Swelling Medium 10/02/2020 Medications docusate sodium (STOOL SOFTENER) 100 mg capsule Take according to [id number] package directions 0 0 9 Active ALPRAZolam [...] (12/26/2020): Added automatically from request for surgery [id number] Hyperlipidemia 12/15/2013 Overview (11/04/2016): HYPERLIPIDEMIA NEC/NOS Hypertension 12/15/2013 Overview (11/05/2016): HYPERTENSION NOS Immunizations Immunization Administration Dates Next Due Td, adsorbed 08/02/2007 Surgical History Surgery Date Site/Laterality Comments OTHER SURGICAL HISTORY x4 D&C BACK SURGERY 1990 Back surgery TOTAL ABDOMINAL HYSTERECTOMY W/ BILATERAL SALPINGOOPHORECTOMY 1986 Hysterectomy, total abdominal, BSO LASIK Bilateral RETINAL LASER PROCEDURE Right for retinal tear SHOULDER SURGERY ABLATION COLONOSCOPY UPPER GASTROINTESTINAL ENDOSCOPY ARM SURGERY Left 20 years ago APPENDECTOMY EYE SURGERY N/A Medical History Medical History Date Comments Hypertension Hypertension Syncope Cancer (HCC) High myopia, both eyes Approx. - 8.00 OU, per patient. s/p LASIK OU Epiretinal membrane (ERM) of left eye Retinal tear of right eye s/p la ser Cataracts, both eyes Diplopia Cataracts, bilateral History of cardiac radiofreq uency ablation (RFA) Family History Medical History Relation Name Comments Heart attack Father Hypertension Father Hypertension Mother Hypertension Other siblings Relation Name Status Comments Father Mother Other siblings Social History Tobacco Use Types Packs/Day Years [...] on file Legal Sex Female 5:47 PM PHARMACY AIDE Gender Identity Not on file Sexual Orientation Not on file Obstetrics History Last Filed Vital Signs Vital Sign Reading Time Taken Comments Blood Pressure 150/80 07/06/2023 11:43 AM PHARMACY AIDE Pulse 58 06/10/2022 11:39 AM PHARMACY AIDE Temperature 36.1 C (97 F) 06/10/2022 11:22 AM PHARMACY AIDE Respiratory Rate 15 06/10/2022 11:39 AM PHARMACY AIDE Oxygen Saturation 100% 06/10/2022 11:39 AM PHARMACY AIDE Inhaled Oxygen Concentration - - Weight 64.9 kg (143 lb) 07/06/2023 11:43 AM PHARMACY AIDE Height 157.5 cm (5' 2 ) 07/06/2023 11:43 AM PHARMACY AIDE Body Mass Index 26.16 07/06/2023 11:43 AM PHARMACY AIDE Plan of Treatment Health Maintenance Due Date Last Done Comments Depression Screening 1945 Hepatitis C Screening 1945 Osteoporosis Screening-Bone Density Scan 1945 Hepatitis B Screening 1965 DTaP/Tdap/Td Vaccine (1 - Tdap) 08/03/2007 8 Zoster Vaccine (2 of 3) 06/14/2010 04/19/2010 Well Visit 65+ 2012 Fall Risk Assessment 06/10/2023 06/10/2022 Covid-19 Vaccine (5 - 2023-2 5 season) 2024 05/19/2022, 05/28/2021, 10/01/2020, Additional history exists Influenza Vaccine (#1) 2024 2, 03/28/2020, 04/10/2019, Additional history exists Pneumococcal vaccine 65+ Completed 022, 05/07/2015, 04/19/2012 Colon Cancer Screening-Colonoscopy Discontinued 06/10/2022, 11/21/2014 Breast Cancer Screening-Mammogram Discontinued 08/09/2023, 05/14/2022, 04/30/2021, Additional history exists Medical Devices Implanted Type Area Aerial Gunner Device Identifier Shelf Expiration Date Model / Serial / Lot [employer] [id number] Device Closure Vascade Od5 Fr Femoral Artery - [id number] - [id number] Implanted:Qty : 1 on 01/05/2021 by Wally Means MD at [facility] Collagen Right: Femoral [employer] 11/03/2022 700-500DX -05U / [id number] / [id number] [employer] [id number] System 6-12fr Mvp Venous Closure Vascade - [id number] - [id number] Implanted:Qty : 1 on 01/05/2021 by Wally Means MD at [facility] Coll[place] Right: Femoral [employer] 11/03/2022 800-612C- 10U / [id number] / [id number] [employer] [id number] System 6-12fr Mvp Venous Closure Vascade - [id number] - [id number] Implanted:Qty : 1 on 01/05/2021 by Wally Means MD at [facility] Coll[place] Right: Femoral [employer] 11/03/2022 800-612C- 10U / [id number] / [id number] [employer] [id number] Device Closure Vascade Od5 Fr Femoral Artery - [id number] - [id number] Implanted:Qty : 1 on 01/05/2021 by Wally Means MD at [facility] Coll[place] Left: Femoral [employer] 11/03/2022 700-500DX -05U / [id number] / [id number] [employer] [id number] Device Closure Vascade Od5 Fr Femoral Artery - [id number] - [id number] Implanted:Qty : 1 on 01/05/2021 by Wally Means MD at [facility] Coll[place] Left: Femoral [employer] 11/03/2022 700-500DX -05U / [id number] / [id number] Procedures Procedure Name Priority Date/Time Associated Diagnosis Comments COLONOSCOPY 06/10/2022 10:05 AM PHARMACY AIDE from Last 3 Months or Most Recently Relevant to Health Maintenance Results * COLONOSCOPY (06/10/2022 10:05 AM PHARMACY AIDE) Anatomical Region Laterality Modality Other Narrative Procedure Note Harshad Moe MD - 06/10/2022 10:05 AM CST [facility] Endoscopy Lab Patient Name: Bita Gatica Procedure Date: 06/10/2022 10:05AM Date of : 1945 Admit Type: Outpatient Age: 77 Gender: Female Attending MD: Harshad Moe M.D. Procedure: Colonoscopy Indications: Screening for colorectal malignant neoplasm, Surveillance: Personal history of adenomatouspolyps on last colonoscopy > 5 years ago Providers: Harshad Moe M.D. Referring MD: Tsering Dumont M.D., Bartolo Ramirez MD Medicines: Monitored Anesthesia Care Complications: [...] clip was successfully placed (MR conditional). Clip inspector bullet slugs:[employer]. There was no bleeding at the end [...] and retrieved. Clip(MR conditional) was placed. Clip inspector bullet slugs: [place] [employer]. - Diverticulosis in the sigmoid colon. Recommendation: [...] Blood Loss: Estimated blood loss was minimal. Harshad Moe MD ENDOSCOPY PROCEDURES Fi nal Result from Last 3 Months or Most Recently Relevant to Health Maintenance Insurance MEDICARE AETNA SENIOR SUPPLEMENT MEDICARE AETNA SENIOR SUPPLEMENT MEDICARE AETNA SENIOR SUPPLEMENT Care Teams Regeneration Operator Relationship Specialty Start Date End Date Koffi Connell MD [address] [place] [address] [id number] PCP - General Family Medicine 07/06/23 Wally Means MD Consulting Physician Cardiology 01/05/21 Isela Rubio OD Referring Physician Optometry 08/11/21 Andrés Smith MD Consulting Physician Retina Ophthalmology 02/25/22 Sidra Beltran PA Physician Gang Knife Fish Chopper Neurology 02/25/22
== END 2024-10-18 10:42 | disposition home or self-care (01) ==
LOC: ANHAUDIO 10:43
PROVIDERS: Visit Provider Otolaryngology Otolaryngology/Facial Plastic Surgery
DX: H93.13 Tinnitus, bilateral (principal); H90.3 Sensorineural hearing loss, bilateral
CPT/HCPCS: 92557; 92567

== ENCOUNTER 2024-11-15 10:11 | Outpatient (CLI) | payer MEDICARE, SELFPAY ==
--- NOTE | ~2024-11-15 | MR_ITS ---
MRI of the brain Clinical History: Hearing loss Technique: Axial and sagittal T1-weighted images were acquired. These were followed by axial T2-weigh cely, diffusion weighted, gradient, and FLAIR images. Thin cut coronal and axial T1-weighted and T2-we ighted images were performed through the internal auditory canals. Following intravenous administrati on of 13 cc ProHance gadolinium, T1-weighted fat-sat imaging was performed through the brain in the a xial and coronal planes. T1 postcontrast and cut imaging was performed through the internal auditory canals in the axial and coronal planes. Findings: There is no acute infarct, intracranial hemorrhage or mass lesion. There is moderate chroni c microvascular ischemic change throughout the periventricular white matter bilaterally. Ventricles and subarachnoid spaces are unremarkable. Orbits are unremarkable. Paranasal sinuses and m astoid air cells are clear. Major intracranial flow voids are intact. Sagittal midline structures are intact. No abnormal mass lesion identified at the internal auditory canals or cerebellopontine angle regions. No abnormal postcontrast enhancement identified. IMPRESSION: No acute infarct, intracranial hemorrhage, or mass lesion. Moderate chronic microvascular ischemic change. Reviewed, dictated and finalized at location .
--- OUTSIDE RECORDS SUMMARY | 2024-11-15 10:52 | XMS_ITS | Encounter Summary ---
Author Organization [facility] Address [address] [place] [address] Care Team Providers Care Software Test Technician Name Role Phone Eduardo Linton MD Primary Care Provider [phone] Encounter Details Date Type Department Care Team (Late st Contact Info) Description 02/04/1999 Outpatient Historical [facility] Ganesh Brower MD Social History Tobacco Use Types Packs/Day Years Used Date Smoking Tobacco: Never Assessed Comments Unknown Sex and Gender Information Value Date Recorded Sex Assigned at Not on file Legal Sex Female 4:23 AM SOLID WASTE FACILITY OPERATOR Gender Identity Not on file Sexual Orientation Not on file documented as of this encounter Plan of Treatment Not on file documented as of this encounter Visit Diagnoses Not on filedocumented in this encounter Care Teams Software Test Technician Relationship Specialty Start Date End Date Eduardo Linton MD PCP - General Internal Medicine 04/12/11 12/17/18 documented as of this encounter
--- OUTSIDE RECORDS SUMMARY | 2024-11-15 10:52 | XMS_ITS | Encounter Summary ---
Author Organization [facility] Address [address] [place] [address] Care Team Providers Care Lube Worker Name Role Phone Eduardo Linton MD Primary Care Provider [phone] Encounter Details Date Type Department Care Team (Late st Contact Info) Description 02/04/1999 Outpatient Historical [facility] Ganesh Brower MD Social History Tobacco Use Types Packs/Day Years Used Date Smoking Tobacco: Never Assessed Comments Unknown Sex and Gender Information Value Date Recorded Sex Assigned at Not on file Legal Sex Female 4:23 AM CV/CVN CV TSC SYSTEM OPERATOR Gender Identity Not on file Sexual Orientation Not on file documented as of this encounter Plan of Treatment Not on file documented as of this encounter Visit Diagnoses Not on filedocumented in this encounter Care Teams Lube Worker Relationship Specialty Start Date End Date Eduardo Linton MD PCP - General Internal Medicine 04/12/11 12/17/18 documented as of this encounter
--- OUTSIDE RECORDS SUMMARY | 2024-11-15 10:52 | XMS_ITS | Encounter Summary ---
Author Organization [facility] Address [address] [place] [address] Care Team Providers Care Financial Manager Name Role Phone Eduardo Linton MD Primary Care Provider [phone] Encounter Details Date Type Department Care Team (Late st Contact Info) Description 02/04/1999 Outpatient Historical [facility] Ganesh Brower MD Social History Tobacco Use Types Packs/Day Years Used Date Smoking Tobacco: Never Assessed Comments Unknown Sex and Gender Information Value Date Recorded Sex Assigned at Not on file Legal Sex Female 4:23 AM BRAND SALES CONSULTANT Gender Identity Not on file Sexual Orientation Not on file documented as of this encounter Plan of Treatment Not on file documented as of this encounter Visit Diagnoses Not on filedocumented in this encounter Care Teams Financial Manager Relationship Specialty Start Date End Date Eduardo Linton MD PCP - General Internal Medicine 04/12/11 12/17/18 documented as of this encounter
--- OUTSIDE RECORDS SUMMARY | 2024-11-15 10:52 | XMS_ITS | Encounter Summary ---
Author Organization [facility] Address [address] [place] [address] Care Team Providers Care Technical Staff Engineer Name Role Phone Eduardo Linton MD Primary [...] on file Legal Sex Female 4:23 AM MULTI SITE LEASING CONSULTANT Gender Identity Not on file Sexual Orientation Not on file documented as of this encounter Plan of Treatment Not on file documented as of this encounter Visit Diagnoses Not on filedocumented in this encounter Care Teams Technical Staff Engineer Relationship Specialty Start Date End Date Eduardo Linton MD PCP - General Internal Medicine 04/12/11 12/17/18 documented as of this encounter
--- OUTSIDE RECORDS SUMMARY | 2024-11-15 10:52 | XMS_ITS | Encounter Summary ---
Author Organization [facility] Address [address] [place] [address] Care Team Providers Care Emergency Department Clinician Name Role Phone Eduardo Linton MD Primary Care Provider [phone] Encounter Details Date Type Department Care Team (Late st Contact Info) Description 02/04/1999 Outpatient Historical [facility] Ganesh Brower MD Social History Tobacco Use Types Packs/Day Years Used Date Smoking Tobacco: Never Assessed Comments Unknown Sex and Gender Information Value Date Recorded Sex Assigned at Not on file Legal Sex Female 4:23 AM DIRECTOR OF DIGITAL PLATFORMS Gender Identity Not on file Sexual Orientation Not on file documented as of this encounter Plan of Treatment Not on file documented as of this encounter Visit Diagnoses Not on filedocumented in this encounter Care Teams Emergency Department Clinician Relationship Specialty Start Date End Date Eduardo Linton MD PCP - General Internal Medicine 04/12/11 12/17/18 documented as of this encounter
--- OUTSIDE RECORDS SUMMARY | 2024-11-15 10:52 | XMS_ITS | Encounter Summary ---
Author Organization [facility] Address [address] [place] [address] Care Team Providers Care Weekend Receptionist Name Role Phone Eduardo Linton MD Primary Care Provider [phone] Encounter Details Date Type Department Care Team (Late st Contact Info) Description 02/04/1999 Outpatient Historical [facility] Ganesh Brower MD Social History Tobacco Use Types Packs/Day Years Used Date Smoking Tobacco: Never Assessed Comments Unknown Sex and Gender Information Value Date Recorded Sex Assigned at Not on file Legal Sex Female 4:23 AM ENROLLMENT PROCESSOR Gender Identity Not on file Sexual Orientation Not on file documented as of this encounter Plan of Treatment Not on file documented as of this encounter Visit Diagnoses Not on filedocumented in this encounter Care Teams Weekend Receptionist Relationship Specialty Start Date End Date Eduardo Linton MD PCP - General Internal Medicine 04/12/11 12/17/18 documented as of this encounter
--- OUTSIDE RECORDS SUMMARY | 2024-11-15 10:52 | XMS_ITS | Encounter Summary ---
Author Organization [facility] Address [address] [place] [address] Care Team Providers Care Senior Solutions Workflow Consultant Name Role Phone Eduardo Linton MD Primary Care Provider [phone] Encounter Details Date Type Department Care Team (Late st Contact Info) Description 02/04/1999 Outpatient Historical [facility] Ganesh Brower MD Social History Tobacco Use Types Packs/Day Years Used Date Smoking Tobacco: Never Assessed Comments Unknown Sex and Gender Information Value Date Recorded Sex Assigned at Not on file Legal Sex Female 4:23 AM HOME HEALTH AIDE Gender Identity Not on file Sexual Orientation Not on file documented as of this encounter Plan of Treatment Not on file documented as of this encounter Visit Diagnoses Not on filedocumented in this encounter Care Teams Senior Solutions Workflow Consultant Relationship Specialty Start Date End Date Eduardo Linton MD PCP - General Internal Medicine 04/12/11 12/17/18 documented as of this encounter
--- OUTSIDE RECORDS SUMMARY | 2024-11-15 10:52 | XMS_ITS | Encounter Summary ---
Author Organization [facility] Address [address] [place] [address] Care Team Providers Care Information Management Specialist Name Role Phone Eduardo Linton [...] on file Legal Sex Female 4:23 AM LOCKSTITCH MACHINE OPERATOR Gender Identity Not on file Sexual Orientation Not on file documented as of this encounter Plan of Treatment Not on file documented as of this encounter Visit Diagnoses Not on filedocumented in this encounter Care Teams Information Management Specialist Relationship Specialty Start Date End Date Eduardo Linton MD PCP - General Internal Medicine 04/12/11 12/17/18 documented as of this encounter
--- OUTSIDE RECORDS SUMMARY | 2024-11-15 10:52 | XMS_ITS | Encounter Summary ---
Author Organization [facility] Address [address] [place] [address] Care Team Providers Care Die Attacher Name Role Phone Eduardo Linton MD Primary Care Provider [phone] Encounter Details Date Type Department Care Team (Late st Contact Info) Description 11/04/2000 Outpatient Historical [facility] Ganesh Brower MD Social History Tobacco Use Types Packs/Day Years Used Date Smoking Tobacco: Never Assessed Comments Unknown Sex and Gender Information Value Date Recorded Sex Assigned at Not on file Legal Sex Female 4:23 AM CAR PILOT Gender Identity Not on file Sexual Orientation Not on file documented as of this encounter Plan of Treatment Not on file documented as of this encounter Visit Diagnoses Not on filedocumented in this encounter Care Teams Die Attacher Relationship Specialty Start Date End Date Eduardo Linton MD PCP - General Internal Medicine 04/12/11 12/17/18 documented as of this encounter
--- OUTSIDE RECORDS SUMMARY | 2024-11-15 10:52 | XMS_ITS | Encounter Summary ---
Author Organization [facility] Address [address] [place] [address] Care Team Providers Care Tax Expert Name Role Phone Eduardo Linton MD Primary Care Provider [phone] Encounter Details Date Type Department Care Team (Late st Contact Info) Description 10/06/2000 Outpatient Historical [facility] Ganesh Brower MD Social History Tobacco Use Types Packs/Day Years Used Date Smoking Tobacco: Never Assessed Comments Unknown Sex and Gender Information Value Date Recorded Sex Assigned at Not on file Legal Sex Female 4:23 AM PHARMACY TECHNICIAN PROGRAM DIRECTOR Gender Identity Not on file Sexual Orientation Not on file documented as of this encounter Plan of Treatment Not on file documented as of this encounter Visit Diagnoses Not on filedocumented in this encounter Care Teams Tax Expert Relationship Specialty Start Date End Date Eduardo Linton MD PCP - General Internal Medicine 04/12/11 12/17/18 documented as of this encounter
--- OUTSIDE RECORDS SUMMARY | 2024-11-15 10:52 | XMS_ITS | Encounter Summary ---
Author Organization [facility] Address [address] [place] [address] Care Team Providers Care Umbrella Supervisor Name Role Phone Eduardo Linton MD Primary Care Provider [phone] Encounter Details Date Type Department Care Team (Late st Contact Info) Description 09/26/2000 Outpatient Historical [facility] MD Nakia HUYNH Maged, MD Social History Tobacco Use Types Packs/Day Years Used Date Smoking Tobacco: Never Assessed Comments Unknown Sex and Gender Information Value Date Recorded Sex Assigned at Not on file Legal Sex Female 4:23 AM ELECTRONIC SPECIALIST Gender Identity Not on file Sexual Orientation Not on file documented as of this encounter Plan of Treatment Not on file documented as of this encounter Visit Diagnoses Not on filedocumented in this encounter Care Teams Umbrella Supervisor Relationship Specialty Start Date End Date Eduardo Linton MD PCP - General Internal Medicine 04/12/11 12/17/18 documented as of this encounter
--- OUTSIDE RECORDS SUMMARY | 2024-11-15 10:52 | XMS_ITS | Encounter Summary ---
Author Organization [facility] Address [address] [place] [address] Care Team Providers Care Gas Leak Inspector Helper Name Role Phone Eduardo Linton MD Primary Care Provider [phone] Encounter Details Date Type Department Care Team (Late st Contact Info) Description 10/04/2000 Outpatient Historical [facility] MD Nakia HUYNH Maged, MD Social History Tobacco Use Types Packs/Day Years Used Date Smoking Tobacco: Never Assessed Comments Unknown Sex and Gender Information Value Date Recorded Sex Assigned at Not on file Legal Sex Female 4:23 AM RECONNAISSANCE CREWMEMBER Gender Identity Not on file Sexual Orientation Not on file documented as of this encounter Plan of Treatment Not on file documented as of this encounter Visit Diagnoses Not on filedocumented in this encounter Care Teams Gas Leak Inspector Helper Relationship Specialty Start Date End Date Eduardo Linton MD PCP - General Internal Medicine 04/12/11 12/17/18 documented as of this encounter
--- OUTSIDE RECORDS SUMMARY | 2024-11-15 10:52 | XMS_ITS | Clinical Summary ---
Author Organization [facility] Address [address] [place] [address] Phone Care Team Providers Care Chief Pilot Name Role Phone Unavailable Primary Care Provider [...] on file Legal Sex Female 4:23 AM SENIOR DYNAMICS CRM DEVELOPER Gender Identity Not on file Sexual Orientation [...] Advance Directives For more information, please contact: [phone] Documents on File Type Date Recorded Patient Manager Style Expl anation Advance Directive Living Will 05/27/2017 9:32 AM Advance Directive Living Will Advance Directive POA 05/27/2017 9:31 AM Advance Directive POA
--- OUTSIDE RECORDS SUMMARY | 2024-11-15 10:53 | XMS_ITS | Referral Summary ---
Author Organization [facility] D Address [address] [place] [address] Care Team Providers Care Firmware Developer Name Role Phone Wally Means MD Unavailable Isela Rubio OD Unavailable [phone] Andrés Smith MD Unavailable Sidra Beltran Unavailable Koffi Connell MD Primary Care Provider [phone] Encounters Date Type Department Care Team Description 10/22/2024 1:30 PM CDT Office Visit [facility] Neurology at [address] [place] [address] Nilson Lawson DO Cerebrovascular disease (Primary Dx); Mild cognitive impairment; Ataxia; Aphasia; Anxiety from Last 3 Months Allergies Active Allergy Reactions Criticality Noted Date Comments Codeine Nausea & Vomiting Low Reaction: NAUSEA Penicillins Hives High Reaction: HIVES Quinapril Itching Low 11/25/2016 Simvastatin Other (See comments) Low Reaction: Hair loss, Venom-Honey Bee Swelling Medium 10/02/2020 Medications docusate sodium (STOOL SOFTENER) 100 mg capsule Take according to hpvt-ohz-wrhhav r package directions 0 0 9 Active ALPRAZolam (XANAX) 0.25 mg tablet Take one by mouth three times per day as needed 30 0 9 Active Additional Information Patient not taking.Reported on 10/22/2024 cyanocobalamin (Vitamin B-12) 1,000 mcg tablet Take [...] 1 TABLET BY MOUTH DAILY 2 Active albuterol HFA (PROVENTIL HFA,VENTOLIN HFA,PROAIR HFA) 90 mcg/actuation inhaler INHALE 2 PUFFS BY MOUTH EVERY 4 HOURS NEEDED FOR SHORTNESS OF BREATH OR WHEEZING 4 Active metoprolol XL (TOPROL-XL) 25 mg extended release tablet 1 TAB ORALLY DAILY 5 Active escitalopram (LEXAPRO) 10 mg tablet Take 1 tablet (10 mg total) by mouth nightly 90 tablet 3 5 10/23/19 26 Active escitalopram (LEXAPRO) 10 mg tablet Take 1 tablet (10 mg total) by mouth nightly 90 tablet 3 3 10/23/19 25 Discontin ued(Reord er) Active Problems Problem Noted Date Diagnosed Date [...] (12/26/2020): Added automatically from request for surgery [id number] Hyperlipidemia 12/15/2013 Overview (11/04/2016): HYPERLIPIDEMIA NEC/NOS Hypertension [...] on file Legal Sex Female 5:47 PM APPRAISER LAND Gender Identity Not on file Sexual Orientation Not on file Last Filed Vital Signs Vital Sign Reading Time Taken Comments Blood Pressure 160/80 10/22/2024 1:29 PM CDT Pulse 58 06/10/2022 11:39 AM APPRAISER LAND Temperature 36.1 C (97 F) 06/10/2022 11:22 AM APPRAISER LAND Respiratory Rate 15 06/10/2022 11:39 AM APPRAISER LAND Oxygen Saturation 100% 06/10/2022 11:39 AM APPRAISER LAND Inhaled Oxygen Concentration - - Weight 62.8 kg (138 lb 6.4 oz) 10/22/2024 1:29 P M CDT Height 157.5 cm (5' 2 ) 10/22/2024 1:29 PM CDT Body Mass Index 25.31 10/22/2024 1:29 PM CDT Plan of Treatment Not on file Medical Devices Implanted Type Area Veneer Repairer Machine Device Identifier Shelf Expiration Date Model / Serial / Lot [employer] [id number] Device Closure Vascade Od5 Fr Femoral Artery - [id number] - [id number] Implanted:Qty : 1 on 01/05/2021 by Wally Means MD at [facility] Collagen Right: Femoral [employer] 11/03/2022 700-500DX -05U / [id number] / [id number] [employer] [id number] System 6-12fr Mvp Venous Closure Vascade - [id number] - [id number] Implanted:Qty : 1 on 01/05/2021 by Wally Means MD at [facility] Collagen Right: Femoral [employer] 11/03/2022 800-612C- 10U / [id number] / [id number] [employer] [id number] System 6-12fr Mvp Venous Closure Vascade - [id number] - [id number] Implanted:Qty : 1 on 01/05/2021 by Wally Means MD at [facility] Collagen Right: Femoral [employer] 11/03/2022 800-612C- 10U / [id number] / [id number] [employer] [id number] Device Closure Vascade Od5 Fr Femoral Artery - [id number] - [id number] Implanted:Qty : 1 on 01/05/2021 by Wally Means MD at [facility] Collagen Left: Femoral [employer] 11/03/2022 700-500DX -05U / [id number] / [id number] [employer] [id number] Device Closure Vascade Od5 Fr Femoral Artery - [id number] - [id number] Implanted:Qty : 1 on 01/05/2021 by Wally Means MD at [facility] Collagen Left: Femoral [employer] 11/03/2022 700-500DX -05U / [id number] / [id number] Procedures Procedure Name Priority Date/Time Associated Diagnosis Comments COLONOSCOPY 06/10/2022 10:05 AM APPRAISER LAND from Last 3 Months or Most Recently Relevant to Health Maintenance Results * COLONOSCOPY (06/10/2022 10:05 AM APPRAISER LAND) Anatomical Region Laterality Modality Other Narrative Procedure Note Harshad Moe MD - 06/10/2022 10:05 AM CST [facility] Patient Name: Bita Gatica Procedure [...] clip was successfully placed (MR conditional). Clip instructional technology specialist:[employer]. There was no bleeding at the end [...] and retrieved. Clip(MR conditional) was placed. Clip instructional technology specialist: [employer]. - Diverticulosis in the sigmoid colon. [...] Recently Relevant to Health Maintenance Insurance MEDICARE [facility] SENIOR SUPPLEMENT MEDICARE [employer] SENIOR SUPPLEMENT MEDICARE [employer] SENIOR SUPPLEMENT Care Teams Firmware Developer Relationship Specialty Start Date End Date Koffi Connell MD [address] [place] [id number] PCP - General Family Medicine 07/06/23 Wally Means MD Consulting Physician Cardiology 01/05/21 Isela Rubio OD Referring Physician Optometry 08/11/21 Andrés Smith MD Consulting Physician Retina Ophthalmology 02/25/22 Sidra Beltran PA Physician Tube Drawer Neurology 02/25/22
--- OUTSIDE RECORDS SUMMARY | 2024-11-15 10:53 | XMS_ITS | Clinical Summary ---
Author Organization [facility] Address [facility] [place] [address] Care Team Providers Care Wool Classer Name Role Phone Jessica Hester Primary Care [...] Department Care Team Description 09/28/2024 10:40 AM BAR STEWARD - 09/28/2024 11:59 PM [facility] Hospital Encounter [facility] [address] [place] [address] Jessica Hester FNP Discharge Disposition: Home or Self Care (Routine Discharge) 09/28/2024 Travel from Last 3 Months Family History Medical History Relation Comments AL Father Hypertension Mother Breast Cancer Paternal Aunt [...] C 1965 DTaP, Tdap and Td Vaccines ( 1 - Tdap) 08/03/2007 08/02/2007 Zoster Vaccines (2 of 3) 06/14/2010 04/19/2010 Annual Medicare Wellness Visit 2012 Dexa Scan (General) 2012 RSV Immunization or 60+ Years (1 - 1-dose 75+ series) 2022 COVID-19 Vaccine (3 - 2023-2 5 season) 2024 10/01/2020, 09/03/2020 Pneumococcal Vaccine: 50+ Years Completed 05/07/2015, 04/19/2012 Meningococcal B Vaccine Aged Out No l onger eligible based on patient's age to complete this topic Meningococcal Vaccine Aged Out No keny ulca eligible based on patient's age to complete this topic RSV Immunizations Under 20 Months Aged Out No longer eligible b ased on patient's age to complete this topic Goals Goal Patient Goal Type Associated Problems Recent Progress Patient-Stated? Author Safety - demonstrates understanding of home safety measures General No Terrie Vasquez managing director Procedure Name Priority Date/Time Associated Diagnosis Comments MG SCREENING W DAGO AR DIGI Routine 09/28/2024 12:14 PM BAR STEWARD Encounter for screening mammogram for breast cancer from Last 3 Months Results * MG SCREENING W DAGO AR DIGI (09/28/2024 12:14 PM BAR STEWARD) Anatomical Region Laterality Modality Breast Bilateral Mammography 09/28/2024 12:0 2 PM BAR STEWARD Impressions 09/28/2024 12:03 PM BAR STEWARD =====IMPRESSION:===== No mammographic findings suggestive of malignancy [...] 09/28/2024 12:02 PM Narrative 09/28/2024 12:03 PM BAR STEWARD [facility] [address] [place] [address] EXAMINATION: Digital bilateral screening mammogram with 3-D [...] No significant change from the prior exam. us Jessica Hester LEAD ELECTRICAL CONTROLS ENGINEER MAMMO Final Resul t from Last 3 Months Insurance MEDICARE [employer] Advance Directives * Full Code (Latest Code Status on File) Date Activated Date Inactivated Comments 10/02/2020 6:09 PM 10/03/2020 5:08 PM Care Teams Wool Classer Relationship Specialty Start Date End Date Jessica Hester FNP [address] [place] [id number] PCP - General Nurse Practitioner Family 03/11/24
--- OUTSIDE RECORDS SUMMARY | 2024-11-15 10:53 | XMS_ITS | Clinical Summary ---
Author Organization [facility] D Address [address] [place] [address] Care Team Providers Care Radio Station Audio Engineer Name Role Phone Wally Means MD Unavailable Isela Rubio OD Unavailable [phone] Andrés Smith MD Unavailable Sidra Beltran Unavailable Koffi Connell MD Primary Care Provider [phone] Allergies Active Allergy Reactions Criticality Noted Date Comments Codeine Nausea & Vomiting Low Reaction: NAUSEA Penicillins Hives High Reaction: HIVES Quinapril Itching Low 11/25/2016 Simvastatin Other (See comments) Low Reaction: Hair loss, Venom-Honey Bee Swelling Medium 10/02/2020 Medications docusate sodium (STOOL SOFTENER) 100 mg capsule Take according to prcw-rwb-dihiac r package directions 0 0 9 Active [...] (12/26/2020): Added automatically from request for surgery [id number] Hyperlipidemia 12/15/2013 Overview (11/04/2016): HYPERLIPIDEMIA NEC/NOS Hypertension 12/15/2013 Overview (11/05/2016): HYPERTENSION NOS Encounters Date Type Department Care Team Description 10/22/2024 1:30 PM CDT Office Visit [facility] Neurology at [place] [address] [facility] [address] [place] [address] Nilson Lawson DO Cerebrovascular disease (Primary Dx); Mild cognitive impairment; Ataxia; Aphasia; Anxiety from Last 3 Months Immunizations Immunization Administration Dates Next Due Td, [...] on file Legal Sex Female 5:47 PM RHINOLOGIST Gender Identity Not on file Sexual Orientation Not on file Obstetrics History Last Filed Vital Signs Vital Sign Reading Time Taken Comments Blood Pressure 160/80 10/22/2024 1:29 PM CDT Pulse 58 06/10/2022 11:39 AM RHINOLOGIST Temperature 36.1 C (97 F) 06/10/2022 11:22 AM RHINOLOGIST Respiratory Rate 15 06/10/2022 11:39 AM RHINOLOGIST Oxygen Saturation 100% 06/10/2022 11:39 AM RHINOLOGIST Inhaled Oxygen Concentration - - Weight 62.8 kg (138 lb 6.4 oz) 10/22/2024 1:29 P M CDT Height 157.5 cm (5' 2 ) 10/22/2024 1:29 PM CDT Body Mass Index 25.31 10/22/2024 1:29 PM CDT Plan of Treatment Health Maintenance [...] 05/28/2021, 10/01/2020, Additional history exists Influenza Vaccine (Season Ended) 2025 05/11/2022, 03/28/2020, 04/10/2019, Additional history exists Pneumococcal vaccine 65+ Completed 022, 05/07/2015, 04/19/2012 Colon Cancer Screening-Colonoscopy Discontinued 06/10/2022, 11/21/2014 Breast Cancer Screening-Mammogram Discontinued 09/28/2024, 09/28/2024, 08/09/2023, Additional history exists Medical Devices Implanted Type Area Gold Charmer Device Identifier Shelf Expiration Date Model / Serial / Lot [employer] [id number] Device Closure Vascade Od5 Fr Femoral Artery - [id number] - [id number] Implanted:Qty : 1 on 01/05/2021 by Wally Means MD at [facility] Collagen Right: Femoral [employer] 11/03/2022 700-500DX -05U / [id number] / [id number] [employer] [id number] System 6-12fr Mvp Venous Closure Vascade - [id number] - [id number] Implanted:Qty : 1 on 01/05/2021 by Wally Means MD at [facility] Collagen Right: Femoral [employer] 11/03/2022 800-612C- 10U / [id number] / [id number] [employer] [id number] System 6-12fr Mvp Venous Closure Vascade - [id number] - [id number] Implanted:Qty : 1 on 01/05/2021 by Wally Means MD at [facility] Collagen Right: Femoral [employer] 11/03/2022 800-612C- 10U / [id number] 05B / [id number] [employer] [id number] Device Closure Vascade Od5 Fr Femoral Artery - [id number] - [id number] Implanted:Qty : 1 on 01/05/2021 by Wally Means MD at [facility] Collagen Left: Femoral [employer] 11/03/2022 700-500DX -05U / [id number] / [id number] [employer] [id number] Device Closure Vascade Od5 Fr Femoral Artery - [id number] - [id number] Implanted:Qty : 1 on 01/05/2021 by Wally Means MD at [facility] Collagen Left: Femoral [employer] 11/03/2022 700-500DX -05U / [id number] / [id number] Procedures Procedure Name Priority Date/Time Associated Diagnosis Comments COLONOSCOPY 06/10/2022 10:05 AM RHINOLOGIST from Last 3 Months or Most Recently Relevant to Health Maintenance Results * COLONOSCOPY (06/10/2022 10:05 AM RHINOLOGIST) Anatomical Region Laterality Modality Other Narrative Procedure Note Harshad Moe MD - 06/10/2022 10:05 AM CST [facility] Endoscopy Lab Patient Name: Bita Gatica Procedure [...] clip was successfully placed (MR conditional). Clip line construction supervisor:[employer]. There was no bleeding at the end [...] and retrieved. Clip(MR conditional) was placed. Clip line construction supervisor: [employer]. - Diverticulosis in the sigmoid colon. Recommendation: [...] Estimated blood loss was minimal. us Harshad oMe MD ENDOSCOPY PROCEDURES Fi nal Result from Last 3 Months or Most Recently Relevant to Health Maintenance Insurance MEDICARE T SENIOR SUPPLEMENT MEDICARE AET SENIOR SUPPLEMENT MEDICARE AET[employer] SENIOR SUPPLEMENT Care Teams Radio Station Audio Engineer Relationship Specialty Start Date End Date Koffi Connell MD [address] [place] [id number] PCP - General Family Medicine 07/06/23 Wally Means MD Consulting Physician Cardiology 01/05/21 Isela Rubio OD Referring Physician Optometry 08/11/21 Andrés Smith MD Consulting Physician Retina Ophthalmology 02/25/22 Sidra Beltran PA Physician Desolderer Neurology 02/25/22
== END 2024-11-15 10:12 | disposition home or self-care (01) ==
PROVIDERS: PCP Nurse Practitioner Family; Visit Provider Otolaryngology Otolaryngology/Facial Plastic Surgery
DX: H91.8X3 Other specified hearing loss, bilateral (principal); R93.0 Abnormal findings on diagnostic imaging of skull and head, not elsewhere classified
CPT/HCPCS: 70553; A9579